=== PATIENT | female | born 1965 | race Caucasian/White ===

== ENCOUNTER → 2017-01-07 | Outpatient (CLI) | payer OTHER ==
--- NOTE | ~2017-01-07 | MR165 ---
[facility] A Service of [facility] RADIOLOGY TEXT RESULTS PATIENT: BEATRIZ WAGONER LOCATION: [facility] : 61 UNIT #: [id number] AGE: [address]: PATTI BROCK APRN SEX: F ORDER DR: [id number] [address] [address] [id number] O MR#: [id number] Acc #: [id number] NAME: BEATRIZ WAGONER : 1965 SEX: F STUDY DATE/TIME: 01/07/2017 13:02 UNIT: [facility] ROOM: STUDY DESCRIPTION: MR Shoulder Wo Contrast Rt Attending Physician: Patti Brock Aprn Ordering Physician: Elliott Mathew M.D. MRI CENTER REPORT This report is preliminary unless electronic signature is present. EXAM MRI of the right shoulder without contrast. HISTORY 51-year-old female complains of right shoulder pain since April 2016. No known trauma. FINDINGS Multiplanar multiecho imaging was performed of the right shoulder utilizing a high field magnet dedicated protocol. Bone structure and alignment appears normal. Minimal periarticular edema about the AC joint and a small inferiorly directed acromial spur. Thickened coracoacromial ligament does narrow the subacromial outlet. Marrow signal within the proximal humerus and glenoid appears normal. Joint fluid within normal limits. Rotator cuff appears intact without significant tendinopathy. No evidence of rotator cuff tear. No muscle atrophy or edema. Superior labrum, biceps anchor and long tendon of the biceps appears intact. Anterior and posterior labrum unremarkable. The extraarticular soft tissues appear normal. IMPRESSION 1. Mildly thickened coracoacromial ligament with some narrowing of the subacromial outlet. This could contribute to impingement but no evidence of active tendinopathy or cuff tear. 2. Minimal AC joint arthropathy. Dictated by.Sindy. Mary Kate Yañez M.D. [facility] A Service of [facility] RADIOLOGY TEXT RESULTS PATIENT: BEATRIZ WAGONER LOCATION: [facility] : 61 UNIT #: [id number] AGE: [address]: PATTI BROCK APRN SEX: F ORDER DR: THIS IS AN ELECTRONICALLY VERIFIED REPORT Mary Kate Yañez M.D. at 01/08/2017 4:04 PM Enzo TD: 01/08/2017 11:39 JOB #: [id number] MRI CENTER REPORT Page 1 of 1
== END | disposition home or self-care (01) ==
LOC: SMRI 12:29
DX: M25.511 Pain in right shoulder (principal); M24.211 Disorder of ligament, right shoulder
CPT/HCPCS: 73221